=== PATIENT | male | born 1960 | race Caucasian/White ===

== ENCOUNTER 2016-03-01 11:02 | Day surgery (SDC) | payer OTHER ==
[~2016-03-01] VITALS: Ht 175.3 cm; Wt 92.0 kg
[2016-03-01 12:19] VITALS: Ht 175.3 cm; Wt 92.0 kg
[2016-03-01] MEDS ORDERED: LANS15CA5 PO (12:25)
[2016-03-01 12:45] VITALS: BP 105/70; PULSE 80; RESP 22
[2016-03-01 13:55] VITALS: BP 101/73; PULSE 72; RESP 13
[2016-03-01] MEDS ORDERED: MIDAZOLAM 1 MG/ML 2 ML INJ ONE ×3 (13:57→13:58)
[2016-03-01] MEDS ORDERED: FENTAnyl 50 MCG/ML VIAL ONE (13:58)
[2016-03-01 14:15] VITALS: BP 93/67; PULSE 68; RESP 13
--- NOTE | 2016-03-01 19:24 | GILP ---
DATE OF PROCEDURE: NAME OF PROCEDURES: 1. Esophagogastroduodenoscopy and biopsy. 2. Colonoscopy and biopsy. SURGEON: Chandrika Trinidad MD PREOPERATIVE DIAGNOSES: 1. Abdominal pain. 2. Chronic heartburn. 3. Rectal bleeding. 4. Screening colonoscopy. POSTOPERATIVE DIAGNOSES: 1. Large hiatal hernia. 2. Reflux esophagitis with erosions. 3. Gastritis with erosions. 4. Gastric mucosal biopsies were taken for Helicobacter pylori test. 5. Colonoscopy to hepatic flexure. 6. Redundant colon and cecum could not be reached. 7. Diverticulosis of the colon. 8. Two transverse colon polyps were removed using the biopsy forceps. 9. Internal and external hemorrhoids. INDICATION FOR THE PROCEDURE: Mr. Marvin Johnson is a 56-year-old male patient who had upper abdo meron pain and chronic heartburn, not responding to therapy. He also had rectal bleeding and positi ve occult blood in stool. He never had screening colonoscopy, so the patient was scheduled for endo scopy and colonoscopy for further evaluation. The procedures and possible complications are well explained to the patient. He understood and cons ented to the procedure. DESCRIPTION OF PROCEDURE: Under the influence of fentanyl and Versed, the gastroscope was carefully introduced into the esophagus and, under direct vision, it was advanced to the stomach and through the pylorus into the duodenal bulb and descending duodenum. FINDINGS: ESOPHAGUS: The patient had a large hiatal hernia with gastroesophageal reflux disease and he esopha gitis with erosions at the lower end. STOMACH: He had gastritis. Gastric mucosal biopsies were taken for H. pylori test. DUODENUM: Normal. The colonoscope was carefully introduced in the rectum and, under direct vision, it was advanced all the way to the hepatic flexures. The patient had a redundant colon and the cecum could not be reac hed. FINDINGS: The patient had 2 transverse colon polyps and they were removed using the biopsy forceps. He had extensive diverticulosis of the sigmoid colon. He also had internal and external hemorrhoi ds. He tolerated the procedures very well and there was no complication from the procedures. At the end of the procedures, he was awake with stable vital signs and he was discharged home to the care of h is family. IMPRESSION: 1. Large hiatal hernia. 2. Reflux esophagitis with erosions. 3. Gastritis with erosions. 4. Gastric mucosal biopsies were taken for Helicobacter pylori test. 5. Colonoscopy to hepatic flexure. 6. Redundant colon and cecum could not be reached. 7. Diverticulosis of the colon. 8. Two transverse colon polyps were removed using the biopsy forceps. 9. Internal and external hemorrhoids. PLAN: 1. Lansoprazole 30 mg p.o. q.a.m. 2. Zantac 300 mg p.o. at bedtime. 3. Await H. pylori test report. 4. Anusol-HC suppository at bedtime. 5. Barium enema for the evaluation of the right colon. Dictated By: CHANDRIKA HENSLEY/ILAN Conf#: [id number] DID#: [id number] CC: CHANDRKIA TRINIDAD MD;*EndCC*
== END 2016-03-01 15:00 | disposition home or self-care (01) ==
LOC: GIL 11:02
PROVIDERS: ATTEND Internal Medicine Gastroenterology
DX: Z12.11 Encounter for screening for malignant neoplasm of colon (principal); D12.3 Benign neoplasm of transverse colon; K21.0 Gastro-esophageal reflux disease with esophagitis; K29.60 Other gastritis without bleeding; K57.90 Diverticulosis of intestine, part unspecified, without perforation or abscess without bleeding; K64.8 Other hemorrhoids; K64.4 Residual hemorrhoidal skin tags
CPT/HCPCS: 43239; 45380; 87081; 88305; J2250; J3010